=== PATIENT | male | born 1960 | race Caucasian/White ===

== ENCOUNTER 2017-07-15 07:00 | Outpatient (CLI) | payer BC | END 2017-07-15 23:59 | disposition home or self-care (01) | LOC: DIABETIC 07:00 | PROVIDERS: ATTEND Family Medicine | DX: E11.9 Type 2 diabetes mellitus without complications (principal) | CPT/HCPCS: G0108 ==

== ENCOUNTER 2017-11-14 04:53 | Outpatient (CLI) | payer BC | END 2017-11-14 23:59 | disposition home or self-care (01) | LOC: DIABETIC 04:53 | PROVIDERS: ATTEND Family Medicine | DX: E11.9 Type 2 diabetes mellitus without complications (principal) | CPT/HCPCS: G0108 ==

== ENCOUNTER 2018-06-01 03:56 | Outpatient (CLI) | payer BC | END 2018-06-01 23:59 | disposition home or self-care (01) | LOC: DIABETIC 03:56 | PROVIDERS: ATTEND Family Medicine | DX: E11.9 Type 2 diabetes mellitus without complications (principal); Z79.82 Long term (current) use of aspirin; Z79.84 Long term (current) use of oral hypoglycemic drugs | CPT/HCPCS: G0108 ==

== ENCOUNTER 2018-09-02 02:19 | Outpatient (CLI) | payer BC | END 2018-09-02 23:59 | disposition home or self-care (01) | LOC: DIABETIC 02:19 | PROVIDERS: ATTEND Family Medicine | DX: E11.9 Type 2 diabetes mellitus without complications (principal); Z79.82 Long term (current) use of aspirin; Z79.84 Long term (current) use of oral hypoglycemic drugs; Z88.8 Allergy status to other drugs, medicaments and biological substances | CPT/HCPCS: G0108 ==